=== PATIENT | male | born 1980 | race Caucasian/White ===

== ENCOUNTER 2017-08-31 08:36 | Emergency (ER) | payer OTHER ==
[2017-08-31] MEDS ORDERED: PROMETHAZINE INJ 12.5 MG in SODIUM CHLORIDE 0.9% 50 ML IV STA (08:53)
[2017-08-31] MEDS ORDERED: SODIUM CHLORIDE 0.9% 1,000 ML IV ONE ×2 (08:53→12:11)
[2017-08-31] MEDS ORDERED: FAMOTIDINE 20 MG/50 ML 50 ML IV ONE (08:53)
--- NOTE | 2017-08-31 08:54 | ED Physician Documentation ---
PD HPI NVD - Stated complaint Stated Complaint: VOMITING - Chief complaint Chief Complaint: Abd Pain - History obtained from History obtained from: Patient - History of Present Illness Timing - duration: Days Timing - details: Still present Associated symptoms: No: Fever, Abdominal pain, Dizzy, Dysuria Contributing factors: Alcohol use Similar symptoms before: Diagnosis (History of UGI hemorrhage in April 2017, when drinking excessively.) - Additonal information Additional information: The patient is a 37-year-old [employer] [place] male who presents with vomiting that started 3 days ago. He reports multiple episodes of vomiting this morning. He denies abdominal pain, fever, diarrhea, lightheadedness, or dysuria. He admits to drinking alcohol last night, and ate fettuccine last night, and then promptly vomited. Past medical history is significant for upper GI hemorrhage in April 2017 when drinking alcohol excessively. He was hospitalized in May and June 2017 for PTSD. Review of Systems Constitutional: reports: Fatigue. denies: Fever Ears: denies: Tinnitus/ringing Nose: denies: Congestion Throat: denies: Sore throat Cardiac: denies: Chest pain / pressure, Palpitations Respiratory: denies: Dyspnea, Cough GI: reports: Nausea, Vomiting. denies: Abdominal Pain, Diarrhea, Bloody / black stool : denies: Dysuria Skin: denies: Rash Musculoskeletal: denies: Back pain, Extremity swelling Neurologic: denies: Focal weakness, Numbness, Headache PD PAST MEDICAL HISTORY - Past Medical History Cardiovascular: None Respiratory: None Endocrine/Autoimmune: None GI: GI bleed Psych: Post traumatic stress disorder - Past Surgical History Past Surgical History: Yes General: Appendectomy - Present Medications Home Medications: Ambulatory Orders Medication Instructions Recorded Confirmed Promethazine [Phenergan] 25 - 50 mg PO Q6H PRN #10 tab 08/31/17 raNITIdine [Zantac] 150 mg PO BID #30 tablet 08/31/17 - Allergies Allergies/Adverse Reactions: Allergies Allergy/AdvReac Type Severity Reaction Status Date / Time Penicillins Allergy Unknown Verified 08/31/17 08:50 - Social History Does the pt drink ETOH?: Yes ETOH Use: Beer PD ED PE NORMAL - Vitals Vital signs reviewed: Yes (Initially tachycardic) - General General: Alert and oriented X 3, Well developed/nourished, Other (Odor of ketones on breath, consistent with alcohol last night.) - HEENT HEENT: Atraumatic, EOMI, Moist mucous membranes, Pharynx benign - Neck Neck: Supple, no meningeal sign, No adenopathy, No JVD - Cardiac Cardiac: No murmur, Other (Rapid rate, regular rhythm.) - Respiratory Respiratory: No respiratory distress, Clear bilaterally - Abdomen Abdomen: Normal bowel sounds, Soft, Non tender, No organomegaly - Back Back: No CVA TTP - Derm Derm: No rash - Extremities Extremities: No edema, No calf tenderness / cord - Neuro Neuro: Alert and oriented X 3, No motor deficit, No sensory deficit, Normal speech Results - Vitals Vitals: Vital Signs - 24 hr 08/31/17 08/31/17 12:12 13:40 Heart Rate 88 95 Respiratory 16 18 Rate Blood Pressure 123/66 117/85 H O2 Saturation 94 96 Oxygen O2 Source Room air - Labs Labs: Laboratory Tests 08/31/17 08/31/17 09:05 09:05 WBC 10.0 RBC 5.38 Hgb 16.6 Hct 48.8 MCV 90.7 MCH 30.8 MCHC 34.0 RDW 13.0 Plt Count 288 MPV 7.0 L Neut # 6.3 Lymph # 2.8 Allen # 0.5 Eos # 0.2 Baso # 0.1 Absolute Nucleated RBC 0.00 Nucleated RBC % 0.0 Sodium 139 Potassium 3.3 L Chloride 100 L Carbon Dioxide 20 L Anion Gap 19.0 H BUN 15 Creatinine 0.7 Estimated GFR (MDRD) 126 Glucose 80 Calcium 9.3 Total Bilirubin 1.6 H AST 54 H ALT 34 Alkaline Phosphatase 53 Total Protein 8.6 H Albumin 5.2 Globulin 3.4 Albumin/Globulin Ratio 1.5 Lipase 11 L Ethyl Alcohol 183.1 PD MEDICAL DECISION MAKING - ED course Complexity details: reviewed results, re-evaluated patient, considered differential, d/w patient ED course: The patient's presentation is most consistent with alcoholic gastritis, with vomiting and dehydration. CBC years normal without anemia or elevated white count. Chemistry panel reveals mildly elevated bilirubin of 1.6, and slight hypokalemia with potassium of 3.3. Alcohol level is elevated at 183. His presentation does not suggest pancreatitis, biliary colic, gastrointestinal hemorrhage, or bowel obstruction. Treatment in the emergency department included administration of normal saline 2 L IV, Phenergan 12.5 mg IV, famotidine he milligrams IV, and lorazepam 1 mg IV. Following the above treatment the patient feels subjectively improved, and demonstrated the ability to drink fluids without recurrent nausea. His tachycardia resolved. He is being discharged with prescriptions for Phenergan and for ranitidine. I discussed with him the diagnosis, alcohol isn't underlying cause, outpatient follow-up, as well as potentially worrisome signs or symptoms that should prompt reevaluation in the emergency department. Departure - Departure Disposition: 01 Home, Self Care Clinical Impression: Dehydration Gastritis Qualifiers: Gastritis type: unspecified gastritis Chronicity: acute Gastritis bleeding: presence of bleeding unspecified Qualified Code(s): K29.00 - Acute gastritis without bleeding Alcohol intoxication Qualifiers: Complication of substance-induced condition: uncomplicated Qualified Code(s): F10.920 - Alcohol use, unspecified with intoxication, uncomplicated Vomiting Qualifiers: Vomiting type: unspecified Vomiting Intractability: non-intractable Nausea presence: with nausea Qualified Code(s): R11.2 - Nausea with vomiting, unspecified Condition: Stable Instructions: ED Gastritis Follow-Up: YESSI jahairasaravanan Ortiz [Provider Group] Prescriptions: Promethazine [Phenergan] 25 - 50 mg PO Q6H PRN #10 tab PRN Reason: Nausea / Vomiting raNITIdine [Zantac] 150 mg PO BID #30 tablet Comments: Refrain from drinking alcohol. Take ranitidine twice daily as prescribed. You can use Phenergan as prescribed if needed for nausea. Drink plenty of fluids. Follow up with your primary physician within 2 weeks. Call to schedule an appointment. Return to the emergency department if you develop increasing abdominal pain, persistent vomiting, recurrent dehydration, or otherwise worsening symptoms. Discharge Date/Time: 08/31/17 13:40
[2017-08-31 09:18] LABS: BASOPHILS # (AUTO) 0.1 10^3/uL (0.0-0.1); BASOPHILS % (AUTO) 0.8 %; EOSINOPHILS # (AUTO) 0.2 10^3/uL (0.0-0.7); EOSINOPHILS % (AUTO) 2.4 %; HGB - HEMOGLOBIN 16.6 g/dL (14.0-18.0); LYMPHOCYTES # (AUTO) 2.8 10^3/uL (1.5-3.5); LYMPHOCYTES % (AUTO) 28.5 %; MEAN CORPUSCULAR HEMOGLOBIN 30.8 pg (27.0-31.0); MEAN CORPUSCULAR VOLUME 90.7 fL (80.0-94.0); MONOCYTES # (AUTO) 0.5 10^3/uL (0.0-1.0); MONOCYTES % (AUTO) 5.2 %; NEUTROPHILS # (AUTO) 6.3 10^3/uL (1.5-6.6); NEUTROPHILS % (AUTO) 63.1 %; PLT - PLATELET COUNT 288 10^3/uL (130-450); RED BLOOD COUNT 5.38 10^6/uL (4.70-6.10)
[2017-08-31 09:53] LABS: ALBUMIN 5.2 g/dL (3.2-5.5); ALBUMIN/GLOBULIN RATIO 1.5 (1.0-2.2); BILIRUBIN,TOTAL 1.6 mg/dL (0.2-1.0); CALCIUM 9.3 mg/dL (8.5-10.3); CREATININE 0.7 mg/dL (0.6-1.2); TOTAL PROTEIN 8.6 g/dL (6.7-8.2)
[2017-08-31] MEDS ORDERED: LORazepam 2 MG/ML VIAL IVP STA (12:11)
[2017-08-31 13:40] VITALS: BP 117/85
== END 2017-08-31 13:40 | disposition home or self-care (01) ==
LOC: ED 08:36
DX: E86.0 Dehydration (principal); K29.00 Acute gastritis without bleeding; F10.920 Alcohol use, unspecified with intoxication, uncomplicated; R11.2 Nausea with vomiting, unspecified; R00.0 Tachycardia, unspecified
CPT/HCPCS: 36415; 80053; 80320; 83690; 85025; 96361; 96365; 96367; 96375; 99283; 99284; J2060; J7040